=== PATIENT | male | born 1950 | race Caucasian/White ===

== ENCOUNTER 2020-03-20 09:37 | Outpatient (CLI) | payer MEDICARE, OTHER, SELFPAY ==
--- NOTE | ~2020-03-20 | US_ITS ---
EXAMINATION: US thyroid EXAM DATE: 03/20/2020 10:22 INDICATION: Altered nodules. TECHNIQUE: Multiple grayscale and Doppler images of the thyroid were obtained (by a technologist who performed the scan) and subsequently reviewed. Individual nodules and recommendations may be reporte d in accordance with TI-RADS system as designated by the 2017 ACR White Paper TI-RADS committee. Comp daniele is made to prior examination from 04/18/2019. FINDINGS: The right thyroid lobe measures 5.3 x 3.0 x 2.5 cm, the left measuring 5.8 x 2.7 x 2.8 cm. Sizable th yroid nodule in each thyroid lobe, category TR 4 lesions, with the right measuring 3.2 x 1.8 x 2.5 cm (stable), and the left measuring 4.1 x 2.6 x 2.5 cm (stable). IMPRESSION: Multinodular goiter, demonstrating one year stability. Nodules could be considered for ul trasound-guided biopsy. Reviewed, dictated and finalized at location A. IMPRESSION: Multinodular goiter, demonstrating one year stability. Nodules coul d be considered for ultrasound-guided biopsy.
== END 2020-03-20 09:38 | disposition home or self-care (01) ==
LOC: ANHIMG 09:52
PROVIDERS: PCP Internal Medicine; Visit Provider Otolaryngology
DX: E04.2 Nontoxic multinodular goiter (principal)
CPT/HCPCS: 76536

== ENCOUNTER 2020-03-27 10:08 | Outpatient (CLI) | payer MEDICARE, OTHER, SELFPAY ==
[2020-03-27 10:52] LABS: Basophils Absolute Auto 0.1 K/mm3 (0.0-0.1); Basophils Percent Auto 0.8 % (0.2-1.2); Eosinophils Absolute Auto 0.2 K/mm3 (0-0.3); Eosinophils Percent Auto 2.9 % (0-4.4); Hematocrit 39.6 % (42.0-52.0); Immature Granulocyte Absolute 0.03 K/mm3 (0.00-0.031); Immature Granulocyte Percent A 0.4 % (0-0.5); Lymphocytes Absolute Auto 1.68 K/mm3 (0.9-3.2); Lymphocytes Percent Auto 21.4 % (18.3-44.2); Mean Corpuscular HGB Conc 32.8 g/dl (32-36); Mean Corpuscular Hemoglobin 30.9 pg (26-34); Mean Corpuscular Volume 94.1 fl (80-100); Mean Platelet Volume 10.4 fl (7.4-10.4); Monocytes Absolute Auto 1.1 K/mm3 (0.1-0.6); Monocytes Percent Auto 13.6 % (2.6-8.5); Neutrophils Absolute Auto 4.8 K/mm3 (1.3-6.7); Neutrophils Percent Auto 60.9 % (45.5-73.1); Platelet Count Result 231 k/mm3 (150-375); Red Blood Count 4.21 M/mm3 (4.6-6.20); Red Cell Distribution Width 13.2 % (11.5-14.5); White Blood Count 7.8 K/mm3 (4.5-10.0)
[2020-03-27 11:11] LABS: Alanine Aminotransferase 20 U/L (4-50); Albumin Level 3.8 g/dL (3.5-5.1); Alkaline Phosphatase 89 U/L (38-126); Anion Gap 6 mmol/L (8-16); Aspartate Amino Transferase 20 U/L (17-59); Bilirubin,Total 0.7 mg/dL (0.2-1.3); Blood Urea Nitrogen 18 mg/dL (9-20); Calcium 8.8 mg/dL (8.4-10.2); Carbon Dioxide 28 mmol/L (22-30); Chloride 103 mmol/L (98-107); Cholesterol 172 mg/dL (0-200); Estimated Glomerular Filt Rate 54; Glucose 100 mg/dL (75-110); HDL Direct 27 mg/dL; Potassium 4.4 mmol/L (3.4-5.0); Sodium 137 mmol/L (137-145); Triglycerides 108 mg/dL (<150)
[2020-03-27 11:12] LABS: Hemoglobin A1C 5.5 % (<5.7)
[2020-03-27 11:15] LABS: Creatinine Urine 99.7 mg/dL
[2020-03-27 11:22] LABS: LDL Cholesterol Direct 100 mg/dL
[2020-03-27 11:24] LABS: MALB Creatinine Ratio < 6.0 mg/g (0-30); Microalbumin Urine Random < 6.0 mg/L (0-16.7)
[2020-03-27 11:41] LABS: Prostate Specific Antigen 2.4 ng/mL (< OR = 4.0)
== END 2020-03-27 10:09 | disposition home or self-care (01) ==
PROVIDERS: PCP Internal Medicine; Visit Provider Internal Medicine
DX: E04.2 Nontoxic multinodular goiter (principal); E78.5 Hyperlipidemia, unspecified; I10 Essential (primary) hypertension; I48.0 Paroxysmal atrial fibrillation; R73.01 Impaired fasting glucose; I48.91 Unspecified atrial fibrillation; Z12.5 Encounter for screening for malignant neoplasm of prostate
CPT/HCPCS: 36415; 80053; 80061; 82043; 83036; 84153; 84443; 85025; G0103

== ENCOUNTER 2020-09-28 08:53 | Outpatient (CLI) | payer MEDICARE, OTHER, SELFPAY ==
[2020-09-28 09:21] LABS: Basophils Absolute Auto 0.1 K/mm3 (0.0-0.1); Basophils Percent Auto 0.8 % (0.2-1.2); Eosinophils Absolute Auto 0.3 K/mm3 (0-0.3); Hematocrit 40.1 % (42.0-52.0); Immature Granulocyte Absolute 0.02 K/mm3 (0.00-0.031); Immature Granulocyte Percent A 0.3 % (0-0.5); Lymphocytes Absolute Auto 1.66 K/mm3 (0.9-3.2); Lymphocytes Percent Auto 25.5 % (18.3-44.2); Mean Corpuscular HGB Conc 32.4 g/dl (32-36); Mean Corpuscular Hemoglobin 30.2 pg (26-34); Mean Corpuscular Volume 93.3 fl (80-100); Mean Platelet Volume 9.9 fl (7.4-10.4); Monocytes Percent Auto 14.6 % (2.6-8.5); Neutrophils Absolute Auto 3.6 K/mm3 (1.3-6.7); Neutrophils Percent Auto 54.8 % (45.5-73.1); Platelet Count Result 246 k/mm3 (150-375); Red Cell Distribution Width 13.9 % (11.5-14.5); White Blood Count 6.5 K/mm3 (4.5-10.0)
[2020-09-28 09:36] LABS: Alanine Aminotransferase 22 U/L (4-50); Albumin Level 3.9 g/dL (3.5-5.1); Alkaline Phosphatase 89 U/L (38-126); Anion Gap 2 mmol/L (8-16); Aspartate Amino Transferase 18 U/L (17-59); Bilirubin,Total 0.4 mg/dL (0.2-1.3); Blood Urea Nitrogen 14 mg/dL (9-20); Calcium 8.9 mg/dL (8.4-10.2); Carbon Dioxide 30 mmol/L (22-30); Chloride 107 mmol/L (98-107); Estimated Glomerular Filt Rate 54; Glucose 96 mg/dL (75-110); Potassium 4.3 mmol/L (3.4-5.0); Sodium 139 mmol/L (137-145)
[2020-09-28 09:50] LABS: Hemoglobin A1C 5.5 % (<5.7)
[2020-09-28 09:53] LABS: Iron 80 ug/dL (49-181)
[2020-09-28 10:02] LABS: Percent Iron Saturation 27 % (20-50)
[2020-09-28 10:27] LABS: Creatinine Urine 166.9 mg/dL
[2020-09-28 10:31] LABS: MALB Creatinine Ratio 7.5 mg/g (0-30); Microalbumin Urine Random 12.6 mg/L (0-16.7)
[2020-09-28 10:48] LABS: Folic Acid > 20.0 ng/mL (2.76->20)
== END 2020-09-28 08:54 | disposition home or self-care (01) ==
PROVIDERS: PCP Internal Medicine; Referring Provider Nurse Practitioner Family; Visit Provider Internal Medicine
DX: D64.9 Anemia, unspecified (principal); E78.2 Mixed hyperlipidemia; I10 Essential (primary) hypertension; R73.01 Impaired fasting glucose; I48.91 Unspecified atrial fibrillation
CPT/HCPCS: 36415; 80053; 82043; 82607; 82728; 82746; 83036; 83540; 83550; 85025

== ENCOUNTER → 2021-01-05 01:13 | Outpatient (CLI) | payer MEDICARE, OTHER, SELFPAY ==
[2021-01-05 17:24] LABS: SARS-CoV-2 RNA PCR Negative
== END ==
PROVIDERS: PCP Internal Medicine; Visit Provider Internal Medicine Gastroenterology
DX: Z01.812 Encounter for preprocedural laboratory examination (principal); Z20.822 Contact with and (suspected) exposure to COVID-19
CPT/HCPCS: C9803; U0003; U0005

== ENCOUNTER 2021-01-08 00:49 | Day surgery (SDC) | payer MEDICARE, OTHER, SELFPAY ==
[2020-12-29 12:09] VITALS: BMI 27.7
[2021-01-08 09:20] VITALS: BP 131/77; PULSE 72; RESP 18; TEMP 36; O2SAT 98; BMI 27.1
[2021-01-08] MEDS: LACTATED RINGERS 1,000 ML 150 ML IV CONT (09:31)
--- NOTE | 2021-01-08 09:51 | PM.HPGS ---
History of Present Illness History of Present Illness Consent: Risks, benefits, and alternatives have been discussed and questions answered. Patient agrees to proceed with procedure. Chief complaint: neoplasm screening Narrative: Jacob Fine is a 70 year old male referred for colon cancer screening Review of Systems Review of Systems: All systems reviewed & are unremarkable except as noted in HPI and below PMFSH Family History Family History Mother Diabetes mellitus Family history of pancreatic disease Sibling Family history of schizophrenia Other Family history of malignant neoplasm Social History Social History Smoking packs per day: 2 Smoking cigarettes per day: 40.0 Years smoked: 5 Smoking pack-years: 10.00 Smoking status: Former smoker Second hand tobacco smoke exposure: No Smoking end date: 07/24/71 Alcohol intake: never Living arrangements: with family Spiritual care concerns: No Meds Home Medications and Allergies Home Medications Medication Instructions Recorded Confirmed Type apixaban 5 mg tablet 5 mg PO BID 09/27/19 12/29/20 History metoprolol tartrate 50 mg tablet 50 mg PO Q12H 09/27/19 12/29/20 History omega 2-nqt-aeq-fish oil 1,000 mg 1 cap PO DAILY 09/27/19 12/29/20 History (120 mg-180 mg) capsule aspirin 81 mg tablet,delayed 81 mg PO DAILY 12/09/19 12/29/20 History release cholecalciferol (vitamin D3) 50 100 mcg PO DAILY cap 12/09/19 12/29/20 History mcg (2,000 unit) capsule coenzyme Q10 100 mg capsule 100 mg PO DAILY cap 12/09/19 12/29/20 History Allergies Allergy/AdvReac Type Severity Reaction Status Date / Time No Known Allergies Allergy Verified 01/08/21 09:19 Vital Signs Vital Signs - 24 hr 01/08/21 09:20 Temperature 36.0 C L Pulse Rate 72 Respiratory Rate 18 Blood Pressure 131/77 Pulse Oximetry 98 Exam Resp: Auscultation: clear to auscultation bilaterally Cardio: Rate: regular rate Rhythm: regular rhythm GI: GI Palp: Yes Soft to palpation and No Tenderness to palpation present (GI) Assessment and Plan Assessment and plan (1) Encounter for screening colonoscopy: Code(s): Z12.11 - Encounter for screening for malignant neoplasm of colon Status: Acute Assessment and Plan: Colonoscopy with possible biopsy or polypectomy or cautery or injection of substances.
--- NOTE | 2021-01-08 10:07 | WPDANESEPPF ---
Anes - Initial Pre Proc Eval Procedure: Operation Date: 01/08/21 10:30 Proposed Procedures p Screening Colonoscopy - Jared King MD Date/Time: 01/08/21 10:07 Surgeon: Jared King MD Pre Op Diagnosis: neoplasm screening Patient Data Age: 70 Gender: M Height: 6 ft 2 in Weight: 96 kg Last Vital Signs Temp 96.8 F L 01/08/21 09:20 Pulse 72 01/08/21 09:20 Resp 18 01/08/21 09:20 BP 131/77 01/08/21 09:20 Pulse Ox 98 01/08/21 09:20 Allergies Allergy/AdvReac Type Severity Reaction Status Date / Time No Known Allergies Allergy Verified 01/08/21 09:19 Home Medications Medication Instructions Recorded Confirmed Type apixaban 5 mg tablet 5 mg PO BID 09/27/19 12/29/20 History metoprolol tartrate 50 mg tablet 50 mg PO Q12H 09/27/19 12/29/20 History omega 2-oun-lyt-fish oil 1,000 mg 1 cap PO DAILY 09/27/19 12/29/20 History (120 mg-180 mg) capsule aspirin 81 mg tablet,delayed 81 mg PO DAILY 12/09/19 12/29/20 History release cholecalciferol (vitamin D3) 50 100 mcg PO DAILY cap 12/09/19 12/29/20 History mcg (2,000 unit) capsule coenzyme Q10 100 mg capsule 100 mg PO DAILY cap 12/09/19 12/29/20 History Patient hx anesthesia problems: none Family hx anesthesia problems: none PMFSH Past Medical History Medical History (Updated 01/08/21 @ 09:56 by Chad Correa MD) AAA (abdominal aortic aneurysm) Complex sleep apnea syndrome Essential hypertension ELVIE (obstructive sleep apnea) Unspecified atrial fibrillation Surgical History Surgical History (Updated 01/08/21 @ 09:56 by Chad Correa MD) History of coronary artery bypass graft Family History Family History Mother Diabetes mellitus Family history of pancreatic disease Sibling Family history of schizophrenia Other Family history of malignant neoplasm Social History Social History Smoking packs per day: 2 Smoking cigarettes per day: 40.0 Years smoked: 5 Smoking pack-years: 10.00 Smoking status: Former smoker Second hand tobacco smoke exposure: No Smoking end date: 07/24/71 Alcohol intake: never Living arrangements: with family Spiritual care concerns: No Anes - Eval Final PreProcedure Day of Procedure 01/08/21 10:07 Patient weight: normal Heart: regular rate and rhythm Lungs: clear to auscultation Airway: Mallampati scale class II Neurological: alert and oriented Last oral intake: >/= 8 hours ASA classification: III Emergent: no Anesthetic plan: proceed Anesthesia type and monitoring: general GIVS and standard monitoring Informed Consent: The patient's anesthetic plan and its attendant risks and benefits were discussed with the patient/family/POA. Questions were solicited and answers provided to the satisfaction of the patient/family/POA.
[2021-01-08 10:36] VITALS: BP 102/57; PULSE 69; RESP 19; O2SAT 98
[2021-01-08 10:46] VITALS: BP 95/56; PULSE 67; RESP 19; O2SAT 98
[2021-01-08 11:06] VITALS: BP 107/60; PULSE 67; RESP 19; O2SAT 98
== END 2021-01-08 11:10 | disposition home or self-care (01) ==
PROVIDERS: PCP Internal Medicine; Visit Provider Internal Medicine Gastroenterology
PROC: 0DJD8ZZ Inspection of Lower Intestinal Tract, Via Natural or Artificial Opening Endoscopic (ICD-10-PCS; CPT 45378; principal; 2021-01-08 10:30)
DX: Z12.11 Encounter for screening for malignant neoplasm of colon (principal); K57.30 Diverticulosis of large intestine without perforation or abscess without bleeding; I10 Essential (primary) hypertension; I48.91 Unspecified atrial fibrillation; I71.4 Abdominal aortic aneurysm, without rupture; G47.33 Obstructive sleep apnea (adult) (pediatric); Z79.01 Long term (current) use of anticoagulants; Z79.82 Long term (current) use of aspirin; Z95.1 Presence of aortocoronary bypass graft; Z87.891 Personal history of nicotine dependence
CPT/HCPCS: G0121; J2704; J7120

== ENCOUNTER 2021-05-31 08:12 | Outpatient (CLI) | payer MEDICARE, OTHER, SELFPAY ==
--- NOTE | ~2021-05-31 | US_ITS ---
EXAMINATION: US thyroid DATE: 05/31/2021 08:43 INDICATION: Nontoxic multinodular goiter. TECHNIQUE: Multiple ultrasound images of the thyroid were obtained. COMPARISON: Thyroid ultrasound 03/20/2020, 04/18/2019 FINDINGS: The right thyroid lobe measures 6.4 x 3.0 x 3.0 cm. The left thyroid lobe measures 6.0 x 2.4 x 2.9 c m. The thyroid demonstrates heterogeneous echogenicity and normal vascularity. In the right thyroid l obe, there is a 3.2 cm solid, hypoechoic, nrhsz-jbeq-ywio nodule with ill-defined margin without echo genic foci (TI-RADS TR4). In the left thyroid lobe, there is a 3.0 cm solid, hypoechoic, arnqx-qdqc-d all nodule with ill-defined margin without echogenic foci (TR4). IMPRESSION: 1. Multinodular goiter, stable from 04/18/2019 given the differences in measurement technique. Conside r ultrasound-guided fine-needle aspiration of 2 nodules. Reviewed, dictated and finalized at location A. 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 Multinodular goiter, stable from 04/18/2019 given the differences in measurem ent technique. Consider ultrasound-guided fine-needle aspiration of 2 nodules.
== END 2021-05-31 08:13 | disposition home or self-care (01) ==
LOC: ANHIMG 08:15
PROVIDERS: PCP Internal Medicine; Visit Provider Otolaryngology
DX: E04.2 Nontoxic multinodular goiter (principal)
CPT/HCPCS: 76536

== ENCOUNTER 2021-10-21 08:19 | Outpatient (CLI) | payer MEDICARE, OTHER, SELFPAY ==
[2021-10-21 08:57] LABS: Basophils Percent Auto 0.7 % (0.2-1.2); Eosinophils Absolute Auto 0.2 K/mm3 (0-0.3); Hematocrit 41.2 % (42.0-52.0); Hemoglobin 13.5 g/dL (14.0-18.0); Immature Granulocyte Absolute 0.01 K/mm3 (0.00-0.031); Immature Granulocyte Percent A 0.2 % (0-0.5); Lymphocytes Absolute Auto 1.65 K/mm3 (0.9-3.2); Lymphocytes Percent Auto 27.6 % (18.3-44.2); Mean Corpuscular HGB Conc 32.8 g/dl (32-36); Mean Corpuscular Volume 94.7 fl (80-100); Mean Platelet Volume 9.8 fl (7.4-10.4); Monocytes Absolute Auto 0.7 K/mm3 (0.1-0.6); Neutrophils Absolute Auto 3.4 K/mm3 (1.3-6.7); Neutrophils Percent Auto 57.5 % (45.5-73.1); Platelet Count Result 247 k/mm3 (150-375); Red Blood Count 4.35 M/mm3 (4.6-6.20); Red Cell Distribution Width 13.4 % (11.5-14.5)
[2021-10-21 09:07] LABS: Alanine Aminotransferase 21 U/L (4-50); Alkaline Phosphatase 98 U/L (38-126); Anion Gap 6 mmol/L (8-16); Aspartate Amino Transferase 18 U/L (17-59); Bilirubin,Total 0.4 mg/dL (0.2-1.3); Blood Urea Nitrogen 15 mg/dL (9-20); Calcium 8.8 mg/dL (8.4-10.2); Carbon Dioxide 26 mmol/L (22-30); Chloride 107 mmol/L (98-107); Cholesterol 156 mg/dL (0-200); Estimated Glomerular Filt Rate > 60; Glucose 96 mg/dL (65-110); HDL Direct 27 mg/dL; Potassium 4.4 mmol/L (3.4-5.0); Sodium 139 mmol/L (137-145); Triglycerides 85 mg/dL (<150)
[2021-10-21 09:17] LABS: LDL Cholesterol Direct 90 mg/dL
[2021-10-21 10:10] LABS: Vitamin D 25 Hydroxy 88.4 ng/mL
== END 2021-10-21 08:20 | disposition home or self-care (01) ==
LOC: ANHLAB 08:23
PROVIDERS: PCP Internal Medicine; Visit Provider Internal Medicine
DX: E04.2 Nontoxic multinodular goiter (principal); E55.9 Vitamin D deficiency, unspecified; E78.2 Mixed hyperlipidemia; G47.31 Primary central sleep apnea; I48.0 Paroxysmal atrial fibrillation; K21.9 Gastro-esophageal reflux disease without esophagitis; Z12.5 Encounter for screening for malignant neoplasm of prostate
CPT/HCPCS: 36415; 80053; 80061; 82306; 84153; 84443; 85025; G0103

== ENCOUNTER 2022-07-03 15:30 | Emergency (ER) | payer MEDICARE, OTHER, SELFPAY ==
--- NOTE | ~2022-07-03 | CT_ITS ---
EXAMINATION: CTA chest PE protocol DATE: 07/03/2022 17:31 INDICATION: hx PE, pleuritic CP x 1 day TECHNIQUE: Computed tomography angiography (CTA) of the chest was performed with 100 mL Omnipaque-350 intravenous contrast timed to evaluate the pulmonary arteries. Coronal maximum intensity projection 3D-reconstructions were created by the technologist. The dose-length product (DLP) was 564.61 mGy-cm. Automated exposure control and iterative reconstruction technique were employed. COMPARISON: X-ray chest, same date, CTPA 10/18/2009. FINDINGS: Lung parenchyma and airways: Bilateral mid and lower lung posterior scarring. Scattered air cysts. Pleura: Unremarkable. Thoracic inlet, axillae and chest wall: Multiple thyroid nodules measuring up to 2.4 cm. Thoracic aorta: Mild arch calcification. Mediastinum: Scattered subcentimeter mediastinal nodes. Heart and pericardium: Normal. Coronary artery calcifications: Mild. Upper abdomen: Cholelithiasis. Bones: No acute osseous finding. Pulmonary arteries: Study quality: Mildly limited by motion artifact in the lower lobes, overall adeq uate. No pulmonary emboli detected. IMPRESSION: No CT evidence of acute pulmonary embolus. Multiple thyroid nodules, recommend nonemergent, outpatien t thyroid ultrasound for further characterization. Reviewed, dictated and finalized at location K. 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 Multiple thyroid nodules, recommend nonemergent, outpatient thyroid ultrasound for further characterization.
--- NOTE | ~2022-07-03 | XR_ITS ---
EXAMINATION: XR chest 2V Exam Date/Time: 07/03/2022 15:40 [facility] FORMER HISTORY: Chest Pain, hx triple bipass, hx PE's Comparison: 10/26/2015, 09/16/2013. RESULT: Lines, tubes, and devices: Intact sternotomy wires. Mediastinal vascular clips. Lungs and pleura: Lower lung scarring, otherwise clear. Cardiomediastinal silhouette: Stable. Other: No acute osseous or upper abdominal finding. IMPRESSION: No acute cardiopulmonary process. Reviewed, dictated and finalized at location K. E FORMER
--- NOTE | 2022-07-03 15:31 | ECG_ITS ---
Measurements Intervals Art Rate: 76 P: 75 ND: 187 QRS: 57 QRSD: 117 T: 49 QT: 358 QTc: 404 Interpretive Statements SINUS RHYTHM INCOMPLETE RIGHT BUNDLE BRANCH BLOCK [90+ ms QRS DURATION, TERMINAL R IN V1/V2, 40+ ms S IN I/aVL/V4/V5/V6] NO PREVIOUS ECG AVAILABLE FOR COMPARISON Electronically Signed On 07-04-2022 6:19:15 [employer] [employer] by Anthony Archibald M.D.
[2022-07-03 15:49] LABS: Basophils Absolute Auto 0.1 K/mm3 (0.0-0.1); Basophils Percent Auto 0.7 % (0.2-1.2); Eosinophils Absolute Auto 0.2 K/mm3 (0-0.3); Eosinophils Percent Auto 2.2 % (0-4.4); Hematocrit 41.6 % (42.0-52.0); Hemoglobin 13.6 g/dL (14.0-18.0); Immature Granulocyte Absolute 0.02 K/mm3 (0.00-0.031); Immature Granulocyte Percent A 0.2 % (0-0.5); Lymphocytes Absolute Auto 1.64 K/mm3 (0.9-3.2); Lymphocytes Percent Auto 17.5 % (18.3-44.2); Mean Corpuscular HGB Conc 32.7 g/dl (32-36); Mean Corpuscular Hemoglobin 30.8 pg (26-34); Mean Corpuscular Volume 94.3 fl (80-100); Mean Platelet Volume 9.6 fl (7.4-10.4); Monocytes Absolute Auto 1.1 K/mm3 (0.1-0.6); Monocytes Percent Auto 11.2 % (2.6-8.5); Neutrophils Absolute Auto 6.4 K/mm3 (1.3-6.7); Neutrophils Percent Auto 68.2 % (45.5-73.1); Platelet Count Result 320 k/mm3 (150-375); Red Blood Count 4.41 M/mm3 (4.6-6.20); White Blood Count 9.4 K/mm3 (4.5-10.0)
[2022-07-03 15:55] VITALS: BP 137/80; PULSE 73; RESP 15; TEMP 36.7; O2SAT 100
[2022-07-03 15:58] LABS: Alanine Aminotransferase 25 U/L (6-50); Albumin Level 4.2 g/dL (3.5-5.1); Alkaline Phosphatase 87 U/L (38-126); Anion Gap 6 mmol/L (8-16); Aspartate Amino Transferase 23 U/L (17-59); Bilirubin,Total 0.5 mg/dL (0.2-1.3); Blood Urea Nitrogen 15 mg/dL (9-20); Calcium 8.6 mg/dL (8.4-10.2); Carbon Dioxide 28 mmol/L (22-30); Chloride 104 mmol/L (98-107); Estimated Glomerular Filt Rate > 60; Glucose 87 mg/dL (65-110); Lipase 83 U/L (23-300); Potassium 3.9 mmol/L (3.4-5.0); Sodium 138 mmol/L (137-145)
[2022-07-03 16:00] VITALS: O2SAT 100
[2022-07-03 16:10] LABS: Troponin I < 0.012 ng/mL (0.000-0.034)
[2022-07-03 16:13] LABS: Prothrombin Time 12.7 Seconds (11.1-14.7)
[2022-07-03 16:57] VITALS: PULSE 85; RESP 12; O2SAT 99
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
[2022-07-03 18:30] VITALS: BP 135/83; PULSE 77; RESP 16; O2SAT 97
== END 2022-07-03 18:46 | disposition home or self-care (01) ==
PROVIDERS: Preventive Medicine Aerospace Medicine; Emergency Provider Physician Assistant; PCP Internal Medicine
DX: I48.91 Unspecified atrial fibrillation (principal); I25.10 Atherosclerotic heart disease of native coronary artery without angina pectoris; I10 Essential (primary) hypertension; I25.2 Old myocardial infarction; G47.31 Primary central sleep apnea; Z95.1 Presence of aortocoronary bypass graft; Z86.711 Personal history of pulmonary embolism; Z79.01 Long term (current) use of anticoagulants; Z87.891 Personal history of nicotine dependence; I45.10 Unspecified right bundle-branch block; E04.2 Nontoxic multinodular goiter
CPT/HCPCS: 36415; 71046; 71275; 80053; 83690; 84484; 85025; 85610; 85730; 93005; 99284; Q9967

== ENCOUNTER 2022-10-14 07:57 | Outpatient (CLI) | payer MEDICARE, OTHER, SELFPAY ==
--- NOTE | ~2022-10-14 | US_ITS ---
Thyroid ultrasound. Clinical History: Multinodular goiter COMPARISON: 05/31/2021 and 03/20/2020 Findings: Real-time sonography of the thyroid gland was performed. The right lobe measures 5.7 x 2.1 x 3.1 cm. The left lobe measures 6.1 x 3.0 x 2.7 cm. The isthmus is 4 mm in AP diameter. At the right mid pole, there is a 3.4 x 1.9 x 2.9 cm heterogeneous solid circumscribed nodule, with s mall internal cystic components. At the left lower pole, there is a 4.0 x 2.7 x 2.5 cm heterogeneous primarily solid nodule, with smal l internal cystic components and heterogeneous appearance overall, though with circumscribed borders. Several much smaller left thyroid lobe nodules are also present. Impression: Bilateral thyroid nodules, as detailed above. Given differences in imaging technique, there has been no significant interval change. Findings are consistent with multinodular goiter. Reviewed, dictated and finalized at location . Impression: Bilateral thyroid nodules, as detailed above. Given differences in ultrasound technologist nique, there has been no significant interval change. Findings are consistent w ith multinodular goiter.
[2022-10-14 09:53] LABS: Alanine Aminotransferase 24 U/L (6-50); Albumin Level 3.9 g/dL (3.5-5.1); Alkaline Phosphatase 106 U/L (38-126); Anion Gap 4 mmol/L (8-16); Aspartate Amino Transferase 17 U/L (17-59); Bilirubin,Total 0.6 mg/dL (0.2-1.3); Blood Urea Nitrogen 19 mg/dL (9-20); Calcium 8.5 mg/dL (8.4-10.2); Carbon Dioxide 28 mmol/L (22-30); Chloride 105 mmol/L (98-107); Cholesterol 158 mg/dL (0-200); Estimated Glomerular Filt Rate 59; Glucose 104 mg/dL (65-110); HDL Direct 26 mg/dL; Potassium 4.2 mmol/L (3.4-5.0); Sodium 137 mmol/L (137-145); Triglycerides 110 mg/dL (<150)
[2022-10-14 10:04] LABS: LDL Cholesterol Direct 91 mg/dL
[2022-10-14 10:21] LABS: Prostate Specific Antigen 3.5 ng/mL (< OR = 4.0)
[2022-10-19 15:23] LABS: Testosterone Free 67.4 pg/mL (30.0-135.0); Testosterone Total 406 ng/dL (250-1100)
== END 2022-10-14 07:58 | disposition home or self-care (01) ==
LOC: ANHIMG 07:59
PROVIDERS: Nurse Practitioner Family; PCP Internal Medicine; Visit Provider Otolaryngology
DX: E04.2 Nontoxic multinodular goiter (principal); N40.0 Benign prostatic hyperplasia without lower urinary tract symptoms; E78.2 Mixed hyperlipidemia; I10 Essential (primary) hypertension; Z12.5 Encounter for screening for malignant neoplasm of prostate
CPT/HCPCS: 36415; 76536; 80053; 80061; 84153; 84402; 84403; 84443; G0103

== ENCOUNTER 2023-05-10 09:22 | Outpatient (CLI) | payer MEDICARE, OTHER, SELFPAY ==
[2023-05-10 10:27] LABS: Basophils Absolute Auto 0.1 K/mm3 (0.0-0.1); Basophils Percent Auto 0.8 % (0.2-1.2); Eosinophils Absolute Auto 0.3 K/mm3 (0-0.3); Eosinophils Percent Auto 4.1 % (0-4.4); Hematocrit 40.8 % (42.0-52.0); Hemoglobin 13.1 g/dL (14.0-18.0); Immature Granulocyte Absolute 0.01 K/mm3 (0.00-0.031); Immature Granulocyte Percent A 0.1 % (0-0.5); Lymphocytes Absolute Auto 1.85 K/mm3 (0.9-3.2); Lymphocytes Percent Auto 25.1 % (18.3-44.2); Mean Corpuscular HGB Conc 32.1 g/dl (32-36); Mean Corpuscular Hemoglobin 30.7 pg (26-34); Mean Corpuscular Volume 95.6 fl (80-100); Mean Platelet Volume 10.2 fl (7.4-10.4); Monocytes Absolute Auto 1.1 K/mm3 (0.1-0.6); Monocytes Percent Auto 14.5 % (2.6-8.5); Neutrophils Absolute Auto 4.1 K/mm3 (1.3-6.7); Neutrophils Percent Auto 55.4 % (45.5-73.1); Platelet Count Result 261 k/mm3 (150-375); Red Blood Count 4.27 M/mm3 (4.6-6.20); Red Cell Distribution Width 13.6 % (11.5-14.5); White Blood Count 7.4 K/mm3 (4.5-10.0)
[2023-05-10 10:37] LABS: Alanine Aminotransferase 21 U/L (6-50); Alkaline Phosphatase 96 U/L (38-126); Anion Gap 4 mmol/L (8-16); Aspartate Amino Transferase 16 U/L (17-59); Bilirubin,Total 0.6 mg/dL (0.2-1.3); Blood Urea Nitrogen 17 mg/dL (9-20); Calcium 8.7 mg/dL (8.4-10.2); Carbon Dioxide 27 mmol/L (22-30); Chloride 106 mmol/L (98-107); Estimated Glomerular Filt Rate 59; Glucose 97 mg/dL (65-110); Potassium 4.2 mmol/L (3.4-5.0); Sodium 137 mmol/L (137-145)
== END 2023-05-10 09:23 | disposition home or self-care (01) ==
LOC: ANHLAB 09:23
PROVIDERS: PCP Nurse Practitioner Family; Visit Provider Nurse Practitioner Family
DX: I10 Essential (primary) hypertension (principal)
CPT/HCPCS: 36415; 80053; 85025

== ENCOUNTER 2023-12-13 10:45 | Outpatient (CLI) | payer MEDICARE, OTHER, SELFPAY ==
[2023-12-13 11:57] LABS: Basophils Absolute Auto 0.1 K/mm3 (0.0-0.1); Eosinophils Absolute Auto 0.2 K/mm3 (0-0.3); Eosinophils Percent Auto 3.3 % (0-4.4); Hematocrit 43.2 % (42.0-52.0); Hemoglobin 13.9 g/dL (14.0-18.0); Immature Granulocyte Absolute 0.02 K/mm3 (0.00-0.031); Immature Granulocyte Percent A 0.3 % (0-0.5); Lymphocytes Absolute Auto 1.41 K/mm3 (0.9-3.2); Lymphocytes Percent Auto 21.1 % (18.3-44.2); Mean Corpuscular HGB Conc 32.2 g/dl (32-36); Mean Corpuscular Hemoglobin 30.8 pg (26-34); Mean Corpuscular Volume 95.6 fl (80-100); Mean Platelet Volume 10.3 fl (7.4-10.4); Monocytes Absolute Auto 0.9 K/mm3 (0.1-0.6); Monocytes Percent Auto 13.2 % (2.6-8.5); Neutrophils Absolute Auto 4.1 K/mm3 (1.3-6.7); Neutrophils Percent Auto 61.1 % (45.5-73.1); Platelet Count Result 267 k/mm3 (150-375); Red Blood Count 4.52 M/mm3 (4.6-6.20); Red Cell Distribution Width 13.4 % (11.5-14.5); White Blood Count 6.7 K/mm3 (4.5-10.0)
[2023-12-13 12:12] LABS: Alanine Aminotransferase 22 U/L (6-50); Albumin Level 4.4 g/dL (3.5-5.1); Alkaline Phosphatase 95 U/L (38-126); Anion Gap 8 mmol/L (4-12); Aspartate Amino Transferase 17 U/L (17-59); Bilirubin,Total 0.6 mg/dL (0.2-1.3); Blood Urea Nitrogen 18 mg/dL (9-20); Calcium 8.9 mg/dL (8.4-10.2); Carbon Dioxide 26 mmol/L (22-30); Chloride 104 mmol/L (98-107); Cholesterol 156 mg/dL (0-200); Estimated Glomerular Filt Rate 59; Glucose 85 mg/dL (65-110); HDL Direct 33 mg/dL; Potassium 4.2 mmol/L (3.4-5.0); Sodium 138 mmol/L (137-145); Triglycerides 159 mg/dL (<150)
[2023-12-13 12:22] LABS: LDL Cholesterol Direct 92 mg/dL
[2023-12-13 12:36] LABS: Prostate Specific Antigen 3.6 ng/mL (< OR = 4.0)
[2023-12-13 12:45] LABS: Iron 84 ug/dL (49-181); Percent Iron Saturation 28 % (20-50); Vitamin D 25 Hydroxy 72.5 ng/mL
[2023-12-13 13:11] LABS: Folic Acid 10.6 ng/mL (2.76->20)
== END 2023-12-13 10:46 | disposition home or self-care (01) ==
PROVIDERS: PCP Family Medicine; Referring Provider Student in an Organized Health Care Education/Training Program; Visit Provider Nurse Practitioner Family
DX: D64.9 Anemia, unspecified (principal); E55.9 Vitamin D deficiency, unspecified; E78.5 Hyperlipidemia, unspecified; I10 Essential (primary) hypertension; I48.91 Unspecified atrial fibrillation; N40.0 Benign prostatic hyperplasia without lower urinary tract symptoms; R42 Dizziness and giddiness; Z12.5 Encounter for screening for malignant neoplasm of prostate; E78.2 Mixed hyperlipidemia
CPT/HCPCS: 36415; 80053; 80061; 82306; 82607; 82728; 82746; 83540; 83550; 84153; 85025; G0103

== ENCOUNTER 2023-12-28 06:58 | Outpatient (CLI) | payer MEDICARE, OTHER, SELFPAY ==
--- NOTE | ~2023-12-28 | MR_ITS ---
MRI of the brain Clinical History: Convulsions Technique: Axial and sagittal T1-weighted images were acquired. These were followed by axial T2-weigh kassi, diffusion weighted, gradient, and FLAIR images. COMPARISON: 06/08/2018 Findings: There is no acute infarct, intracranial hemorrhage or mass lesion. There are moderate chron ic microvascular ischemic changes in the periventricular white matter bilaterally. Ventricles and subarachnoid spaces are unremarkable. Orbits are unremarkable. Paranasal sinuses and m astoid air cells are clear. Major intracranial flow voids are intact. Sagittal midline structures are intact. IMPRESSION: No acute infarct, intracranial hemorrhage, or mass lesion. Moderate chronic microvascular ischemic changes. Reviewed, dictated and finalized at location M.
--- NOTE | ~2023-12-28 | CT_ITS ---
CT ANGIOGRAM NECK AND HEAD History: TIA. Technique: Axial noncontrast imaging of the brain was performed. Serial spiral axial images through t he head and neck were then obtained during arterial phase IV injection of 100 cc of Omnipaque 350. 3- D postprocessing and MIP images were then reconstructed on the remote workstation. Dose reduction wale hnique was used on this scan by utilizing automated exposure control and iterative reconstruction wale hnique. The dose-length product (DLP) was 1766.21 mGy-cm. CTA neck findings: Left vertebral artery is hypoplastic, patent. Right vertebral artery is widely pa tent. Bilateral common carotid, internal carotid, and external carotid arteries are patent. There are small calcified plaques of the bilateral proximal internal carotid arteries, without significant jw nosis. No large vessel occlusion. No aneurysm. The proximal right internal carotid artery demonstrate s 0% stenosis relative to the normal distal artery lumen diameter. The proximal left internal carotid artery demonstrates 0% stenosis relative to the normal distal artery lumen diameter. CTA head findings: Distal vertebral arteries, basilar artery, and posterior cerebral arteries are pat ent. Distal internal carotid arteries, middle cerebral arteries, and anterior cerebral arteries are p atent. There are areas of mild to moderate stenosis in the cavernous portions of the distal internal carotid arteries related to atherosclerotic calcifications. No other stenosis or large vessel occlusi on seen. No aneurysm seen. Axial noncontrast imaging of the brain is unremarkable. No acute infarct, intracranial hemorrhage or mass lesion seen. Contreras-white differentiation preserved. No mass effect or midline shift. Ventricles a nd subarachnoid spaces are unremarkable. Paranasal sinuses and mastoid air cells are clear. Calvarium intact. Impression: There are areas of mild to moderate stenosis in the cavernous portions of the distal internal carotid arteries related to atherosclerotic calcifications. Hypoplastic left vertebral artery. Reviewed, dictated and finalized at location M. Impression: There are areas of mild to moderate stenosis in the cavernous portions of the d istal internal carotid arteries related to atherosclerotic calcifications. Hypoplastic left vertebral artery.
--- NOTE | 2023-12-29 13:57 | P.NEURO_ITS ---
Neurology EEG Report General Information Date of Study: 12/28/23 TEST EEG CONDITION OF RECORDING Fair EEG NUMBER [id number] CLINICAL HISTORY spells of dizziness and foggy spells it may last up to 8 hours and happen about every 28-30 days EEG DESCRIPTION During wakefulness the background activity consists of posterior dominant alpha rhythm at 8-9 hertz with an amplitude of 25-50 microvolts which appears well- formed and reactive to eye opening. Anteriorly low amplitude mixed frequency activity was seen. Hyperventilation not performed. During drowsiness attenuation of background activity was seen. Patient did not progress to stage 2 sleep. 40 cm was performed during which no significant abnormal background changes were seen. No episode all driving response was noted. IMPRESSION This is a normal EEG obtained during awake and drowsy states.
== END 2023-12-28 06:59 | disposition home or self-care (01) ==
PROVIDERS: PCP Nurse Practitioner Family; Visit Provider Student in an Organized Health Care Education/Training Program
DX: R56.9 Unspecified convulsions (principal); G45.9 Transient cerebral ischemic attack, unspecified
CPT/HCPCS: 70496; 70498; 70551; 95816; Q9967

== ENCOUNTER 2024-10-22 10:59 | Outpatient (CLI) | payer MEDICARE, OTHER, SELFPAY ==
[2024-10-22 11:31] LABS: Basophils Absolute Auto 0.1 K/mm3 (0.0-0.1); Basophils Percent Auto 0.8 % (0.2-1.2); Eosinophils Absolute Auto 0.3 K/mm3 (0-0.3); Hematocrit 39.4 % (42.0-52.0); Hemoglobin 12.9 g/dL (14.0-18.0); Immature Granulocyte Absolute 0.02 K/mm3 (0.00-0.031); Immature Granulocyte Percent A 0.3 % (0-0.5); Lymphocytes Absolute Auto 1.73 K/mm3 (0.9-3.2); Mean Corpuscular HGB Conc 32.7 g/dl (32-36); Mean Corpuscular Hemoglobin 30.7 pg (26-34); Mean Corpuscular Volume 93.8 fl (80-100); Mean Platelet Volume 9.9 fl (7.4-10.4); Monocytes Percent Auto 14.3 % (2.6-8.5); Neutrophils Absolute Auto 4.1 K/mm3 (1.3-6.7); Neutrophils Percent Auto 56.6 % (45.5-73.1); Platelet Count Result 267 k/mm3 (150-375); Red Cell Distribution Width 13.5 % (11.5-14.5); White Blood Count 7.2 K/mm3 (4.5-10.0)
[2024-10-22 11:49] LABS: Alanine Aminotransferase 19 U/L (6-50); Albumin Level 3.9 g/dL (3.5-5.1); Alkaline Phosphatase 87 U/L (38-126); Anion Gap 6 mmol/L (4-12); Aspartate Amino Transferase 15 U/L (17-59); Bilirubin,Total 0.5 mg/dL (0.2-1.3); Blood Urea Nitrogen 15 mg/dL (9-20); Calcium 8.9 mg/dL (8.4-10.2); Carbon Dioxide 28 mmol/L (22-30); Chloride 104 mmol/L (98-107); Cholesterol 192 mg/dL (0-200); Estimated Glomerular Filt Rate 56; Glucose 87 mg/dL (65-110); HDL Direct 30 mg/dL; Potassium 4.3 mmol/L (3.4-5.0); Sodium 138 mmol/L (137-145); Triglycerides 150 mg/dL (<150)
[2024-10-22 11:57] LABS: Hemoglobin A1C 5.8 % (<5.7)
[2024-10-22 12:08] LABS: LDL Cholesterol Direct 110 mg/dL
[2024-10-22 12:16] LABS: Free T4 Free Thyroxine 1.16 ng/dL (0.78-2.19)
--- OUTSIDE RECORDS SUMMARY | 2024-10-22 12:18 | XMS_ITS | Referral Summary ---
Author Organization [facility] Building [address] Address [address] [address] Care Team Providers Care Machining Technician Name Role Phone Merlin Vitale MD Primary Care Provider [phone] Merlin Vitale MD Unavailable Encounters Date Type Department Care Team Description 08/12/2024 Telephone [facility] Cardiology [address] [place] [address] Anthony Archibald MD Med Refill from Last 3 Months Allergies No known active allergies Medications multivitamin tablet tablet take 1 tablet by oral route every day with food 0 0 10/24/2013 Active aspirin (ASPIRIN LOW DOSE) 81 mg tablet take 1 Tablet (81MG) by oral route every day 0 12/03/2012 Active omega-3 fatty acids-fish oil 340-1,000 mg capsule take 1 by Oral route every day 0 0 09/16/2013 Active niacin (NIASPAN) 500 mg tablet take 4 tablet by oral route every day 0 04/25/2013 Active coenzyme Q10 100 mg capsule Take 1 capsule (100 mg total) by mouth daily Active sildenafil (VIAGRA) 50 mg tablet 04/02/2019 Active simvastatin (ZOCOR) 20 mg tablet TAKE 1 TABLET NIGHTLY 90 tablet 3 09/27/2019 Active vit D3-vit V-teexvtdyp-osk s [phone] pwsq-bcu-fa-mg tablet Take by mouth Active ascorbic acid, vitamin C, 125 mg tablet,chewable Take by mouth Active lisinopriL (PRINIVIL,ZESTR IL) 5 mg tabletIndicatio ns:Coronary artery disease involving knik coronary artery of knik heart without angina pectoris TAKE 1 TABLET DAILY 90 tablet 3 01/01/2024 Active metoprolol XL (TOPROL-XL) 50 mg extended release tablet TAKE 1 TABLET DAILY 90 tablet 3 05/31/2024 Active apixaban (Eliquis) 5 mg tablet Take 1 tablet (5 mg total) by mouth 2 (two) times a day 60 tablet 08/13/2024 5 Active Active Problems Problem Noted Date Diagnosed Date Primary hypertension 01/03/2022 Assessment & Plan (01/13/2023 2:37 PM CDT): Impression: Chronic stable hypertension. Plan: Continue lisinopril and metoprolol. Assessment & Plan (01/03/2022 10:34 AM CDT): Followed by his PCP and chronic stable. I recommend he continue his lisinopril and Lopressor. Mixed hyperlipidemia 12/23/2019 Assessment & Plan (01/13/2023 2:37 PM CDT): Impression: Chronic stable hyperlipidemia. Plan: Continue Zocor 20 mg. Assessment & Plan (12/23/2019 9:41 AM CDT): Patient is maintained on a statin at this time. Abdominal aortic aneurysm (AAA) without rupture 04/22/2019 Assessment & Plan (01/18/2024 4:14 PM CDT): Being followed for a known suprarenal aortic aneurysms currently measuring 3.2 by cm. This is stable from previous duplex. Patient denies any abnormal abdominal flank or back pain. Plan: Follow-up in 1 year for routine surveillance with Assessment & Plan (01/13/2023 2:36 PM CDT): Impression: Patient has a proximal abdominal aortic aneurysms measuring approximately 3.4 cm which is stable from his last duplex scan. He remains asymptomatic. Plan: Continue ongoing risk factor modifications. -patient to follow-up in 1 year for re-evaluation with repeat abdominal aortic duplex Assessment & Plan (01/03/2022 10:32 AM CDT): Patient's aneurysm has not changed in size. Will have him follow up in 1 year with a repeat abdominal aortic duplex. Assessment & Plan (12/28/2020 9:23 AM CDT): Impression: Patient's states he is doing well since his last visit. Abdominal duplex is done 12/28/2020 reveals an infrarenal aorta measuring 2.0 cm. Plan: Follow-up in 1 year for re-evaluation with abdominal aorta imaging. Assessment & Plan (12/23/2019 9:40 AM CDT): Patient has infrarenal AAA that is measuring on ultrasound today at 2.6. At the outside hospital it measured 3.4, 6 months ago. At this time this is still a small aneurysm and will plan to see him in a year for repeat aortic duplex. If it increases in size significantly by that time then we will order CT scan. Otherwise will continue to monitor with ultrasounds. Assessment & Plan (04/22/2019 9:57 AM CDT): Patient has a 3.4 cm aneurysm. At this time it is not yet at the size that we need to fix. He will follow up in 6 months with another abdominal ultrasound to continue to monitor the growth. It was discussed with the patient about how it might need to be fixed in the future he had many questions which were all answered. Coronary artery disease invo lving knik coronary artery of knik heart without angina pectoris 05/25/2017 Hx of CABG 05/25/2017 Assessment & Plan (12/23/2019 9:41 AM CDT): Patient has a straight CABG but is not complaining of any chest pain or issues at this time. He is active with walking and riding his bike and denies any chest discomfort when doing these activities. Anticoagulation management encounter 01/04/2017 Assessment & Plan (04/22/2019 9:58 AM CDT): Currently on Eliquis for his AFib. He also takes an aspirin a day. Assessment & Plan (01/04/2017 11:45 AM CDT): He remains on Eliquis, as he has a history of pulmonary venous thromboembolic disease. He denies any problems with bleeding or bruising. He can follow up in 1 year for an office visit and 12 lead EKG. Paroxysmal atrial fibrillation 07/18/2014 Overview (10/28/2016): PAF Assessment & Plan (12/23/2019 9:41 AM CDT): Patient has paroxysmal AFib and is on Eliquis. Assessment & Plan (01/04/2017 11:45 AM CDT): He has a history of paroxysmal atrial fibrillation. He is 3 years post ablation and is not experience recurrent atrial arrhythmia. He remains on metoprolol. Immunizations Immunization Administration Dates Next Due Influenza, Quad, Adjuvantated, Intramuscular Influenza, Quadrivalent, Spl it, Preservative Free, Intramuscular 05/23/2018 Influenza, Trivalent, Adjuvanted, Intramuscular 05/31/2019 Influenza, Unspecified 05/09/2014,05/02/2012 Pneumococcal, Unspecified 05/02/2012 Social History Tobacco Use Types Packs/Day Years Used Date Smoking Tobacco: Never Smokeless Tobacco: Never Tobacco Cessation:Counseling Given: Not Answered Alcohol Use Standard Drinks/Week Comments No 0 (1 standard drink = 0.6 oz pur e alcohol) Sex and Gender Information Value Date Recorded Sex Assigned at Not on file 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 Gender Identity Not on file Sexual Orientation Not on file Last Filed Vital Signs Vital Sign Reading Time Taken Comments Blood Pressure 102/64 04/16/2024 3:51 PM CDT Pulse 95 04/16/2024 3:51 PM CDT Temperature 36.3 C (97.4 F) 04/22/2019 8:43 AM CDT Respiratory Rate 14 05/25/2017 10:11 AM CDT Oxygen Saturation 98% 04/16/2024 3:51 PM CDT Inhaled Oxygen Concentration - - Weight 98.5 kg (217 lb 1.6 oz) 04/16/2024 3:51 P M CDT Height 188 cm (6' 2 ) 04/16/2024 3:51 PM CDT Body Mass Index 27.87 04/16/2024 3:51 PM CDT Plan of Treatment Not on file Insurance MEDICARE FOR LIFE FOR LIFE MEDICARE Care Teams Machining Technician Relationship Specialty Start Date End Date Merlin Vitale MD [address] [place], [place] [id number] PCP - General 12/23/19 Merlin Vitale MD [address] [place], [place] [id number] Internal Medicine 12/23/19
--- OUTSIDE RECORDS SUMMARY | 2024-10-22 12:18 | XMS_ITS | Clinical Summary ---
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 Gender Identity Not on file Sexual Orientation Not on file Plan of Treatment Health Maintenance Due Date Last Done Comments Hepatitis C Virus (HCV) Screening 1950 TdaP Immunization 1950 Colonoscopy 1994 Colorectal Cancer Screening 1994 Cologuard 1999 Immunochemical Fecal Occult Blood 1999 Pneumococcal Immunization (5 0+ years) (1 of 1 - PCV) 1999 Zoster Immunization (1 of 2) 1999 Respiratory Syncytial Virus (RSV) Immunization (Adult) (1 - 1-dose 75+ series) 02/21/2024 Influenza Immunization (#1) 2024 SARS-COV-2 Immunization ( - 2023-25 season) 2024 Hepatitis B Immunization Aged Out No longer eligible based on patient's age to complete this topic Meningococcal Immunization (ACWY) Aged Out No longer eligible based on patient's age to complete this topic Rotavirus Immunization Aged Out No lo nger eligible based on patient's age to complete this topic
--- OUTSIDE RECORDS SUMMARY | 2024-10-22 12:18 | XMS_ITS | Clinical Summary ---
Author Organization [facility] Address [address] [place] [address] Care Team Providers Care Intervention Manager Name Role Phone Merlin Vitale MD Primary Care Provider Source Comments [facility],non-owned Affiliates and Associated Physician Practices is amultiple site organization consisting of ambulatory clinics and hospital sitesin [place], [place], [place] and [place]. This disclosure is being madepursuant to the Care Everywhere program and may not contain all information available regarding this patient. Last updated 18.[facility] Allergies No known active allergies Medications * Be aware that medications may not be up to date on this document. Alwaysverify current medications with the patient. Medication Sig Dispensed Refills Start Date End Date Status apixaban (Eliquis) 5 MG tablet Take 5 mg by mouth 2 times daily 03/04/2021 Active Ascorbic Acid 125 MG CHEW Take 1 tablet by mouth once daily Active Berberine-RedIsoAlphaA cd-D-K (OSTERA) TABS Take 1 tablet by mouth once daily Active metoprolol tartrate (LOPRESSOR) 50 MG tablet Take 25 mg by mouth 2 times daily 12/17/2020 Active simvastatin (ZOCOR) 20 MG tablet Take 20 mg by mouth once daily 04/29/2020 Active sildenafil (VIAGRA) 50 MG tablet Take 50 mg by mouth once daily as needed 09/06/2020 Active lisinopril (Prinivil; Zestril) 5 MG tablet Take 5 mg by mouth once daily 02/02/2022 Active Active Problems Problem Noted Date Diagnosed Date Primary hypertension 01/03/2022 Overview (04/13/2022): Last Assessment & Plan: Followed by his PCP and chronic stable. I recommend he continue his lisinopril and Lopressor. Mixed hyperlipidemia 12/23/2019 Overview (04/13/2022): Last Assessment & Plan: Patient is maintained on a statin at this time. Abdominal aortic aneurysm (AAA) without rupture 04/22/2019 Overview (04/13/2022): Last Assessment & Plan: Patient's aneurysm has not changed in size. Will have him follow up in 1 year with a repeat abdominal aortic duplex. Coronary artery disease invo lving [place] coronary artery of [place] heart without angina pectoris 05/25/2017 Hx of CABG 05/25/2017 Overview (04/13/2022): Last Assessment & Plan: Patient has a straight CABG but is not complaining of any chest pain or issues at this time. He is active with walking and riding his bike and denies any chest discomfort when doing these activities. Anticoagulation management encounter 01/04/2017 Overview (04/13/2022): Last Assessment & Plan: Currently on Eliquis for his AFib. He also takes an aspirin a day. Paroxysmal atrial fibrillation 07/18/2014 Overview (04/13/2022): PAF Last Assessment & Plan: Patient has paroxysmal AFib and is on Eliquis. Immunizations Name Administration Dates Next Due INFLUENZA VACCINE 05/09/2014,05/02/2012 INFLUENZA VACCINE, ADJUVANTE D, QUADR. (FLUAD QUADRIVALENT; 65Y+) (AIIV4) 05/08/2020 INFLUENZA VACCINE, ADJUVANTE D, TRIV. (FLUAD TRIVALENT; 65Y+) (AIIV3) 05/31/2019 INFLUENZA VACCINE, QUADR. (F LUZONE; FLULAVAL; FLUARIX; AFLURIA QUADRIVALENT; 6MO+), 0.5 ML (IIV4) 05/23/2018 PNEUMOCOCCAL PPV VACCINE 05/02/2012 Social History Tobacco Use Types Packs/Day Years Used Date Smoking Tobacco: Former Cigarettes Q uit: 07/24/1969 Smokeless Tobacco: Never Alcohol Use Standard Drinks/Week Comments Not Currently 0 (1 standard drink = 0.6 oz pur e alcohol) Sex and Gender Information Value Date Recorded Sex Assigned at Not on file Gender Identity Not on file Sexual Orientation Not on file Last Filed Vital Signs Vital Sign Reading Time Taken Comments Blood Pressure 143/74 07/15/2021 9:44 AM THERAPIST SPEECH Pulse 76 07/15/2021 9:44 AM THERAPIST SPEECH Temperature 36.7 C (98.1 F) 07/15/2021 9:44 AM THERAPIST SPEECH Respiratory Rate - - Oxygen Saturation 100% 07/15/2021 9:44 AM THERAPIST SPEECH Inhaled Oxygen Concentration - - Weight - - Height - - Body Mass Index - - Plan of Treatment Health Maintenance Due Date Last Done Comments COLOGUARD (AGES 45-75) - COLON CA SCREENING 1949 COLON MONITORING 1949 COLONOSCOPY - COLON CA SCREENING 1949 CT COLONOGRAPHY - COLON CA SCREENING 1950 Colorectal Cancer Screening 1949 FIT - COLON CA SCREENING 1949 FLEX SIG - COLON CA SCREENING 1950 MEDICARE AWV 12 MONTHS 1949 HEPATITIS C SCREENING 02/16/1967 DTAP/TDAP/TD VACCINES (1 - Tdap) 02/21/1968 ZOSTER VACCINE (1 of 2) 1999 PNEUMOCOCCAL VACCINE 50+ (2 of 2 - PCV) 05/02/2013 05/02/2012 Respiratory Syncytial Virus (RSV) Vaccine Pt: or over 60 yrs (1 - 1-dose 75+ series) 02/21/2024 COVID-19 VACCINE (1 - season) 2024 INFLUENZA VACCINE (#1) 2024 , 05/31/2019, 05/23/2018, Additional history exists DEPRESSION SCREENING 07/24/2024 HEPATITIS B VACCINE Aged Out No longe r eligible based on patient's age to complete this topic HIB VACCINE Aged Out No longer eligi ble based on patient's age to complete this topic HPV VACCINE Aged Out No longer eligi ble based on patient's age to complete this topic MENINGOCOCCAL (Group B) VACCINE SHARED DECISION-MAKING Aged Out No longer eligible based on patient's age to complete this topic MENINGOCOCCAL GROUPS A/C/Y/W VACCINE Aged Out No longer eligible based on patient's age to complete this topic Care Teams Intervention Manager Relationship Specialty Start Date End Date Merlin Vitale MD [address] [place] [address] PCP - General 06/15/21
--- OUTSIDE RECORDS SUMMARY | 2024-10-22 12:19 | XMS_ITS | Continuity of Care Document ---
Author Name [facility] Organization [facility] Care Team Providers Care Crib Tender Name Role Phone [facility] Unavailable Unavailable Problems Combined list of problems from Department of Defense and [facility] Affairs facilities. It does not include entries that were removed or entered in error. Problem Status Onset Date Problem Type Date of Resolution Comments Source History of pulmonary embolism on long-term anticoagulation therapy (SNOMED CT 57590937859010674) Active 0 Condition [facility] AF-Atrial Fibrillation ([facility] 26095315) Active Condition Jul 04, 2023 Entered By: SUMEET ELAM Comment: ablation 2012 [facility] Benign prostatic hyperplasia (SNOMED CT 508309440) Active Condition [facility] Coronary artery disease (SNOMED CT 89844168) Active Condition Feb 22, 2012 Entered By: MERARY LOPEZ Comment: sp 4 v cabg at [employer] 2009 [facility] Dyspnea * (ICD-9-CM 786.05) Active Condition [facility] Exposure to potentially hazardous substance Active Condition Sep 18, 2023 Entered By: CHEYENNE CAMARGO I Comment: Agent [place] [facility] Hypertension (SNOMED CT 77928938) Active Condition [facility] Non-neoplastic nevus Active Condition [facility] Panic attack (SNOMED CT 440863600) Active Condition [facility] Diagnosis: ICD-10-CM H53.2 Diplopia Active Diagnosis [facility] Diagnosis: ICD-10-CM I25.10 Athscl heart disease of [place] coronary artery w/o ang pctrs Active Diagnosis [facility] Diagnosis: ICD-10-CM 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 [facility] Diagnosis: ICD-10-CM Z77.29 Contact with and exposure to other hazardous substances Active Diagnosis [facility] Diagnosis: ICD-10-CM D03.8 Melanoma in situ of other sites Active Diagnosis [facility] Diagnosis: ICD-10-CM I48.91 Unspecified atrial fibrillation Active Diagnosis [facility] Diagnosis: ICD-10-CM Z79.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 Medication Details Route Status Patient Instructions Prescription Expires Prescription Number Last Dispense Date Ordering Provider Order Date Order Qty Source APIXABAN 5MG TAB TAKE ONE TABLET BY MOUTH TWICE A DAY ORAL ACTIVE Leda PASCAL 2013 [facility] ASPIRIN (IMMEDIATE RELEASE)(OT C) TAB TAKE 81MG BY MOUTH ONCE A DAY ORAL ACTIVE Leda PASCAL 2011 [facility] CHOLECALCIF MALCOLM 25MCG (1,000UNIT) TAB TAKE ONE TABLET BY MOUTH ONCE A DAY ORAL ACTIVE IAN GARVEY 2022 [facility] COENZYME Q10 CAP/TAB TAKE 1 CAP/TAB BY MOUTH ONCE A DAY ORAL ACTIVE IAN GARVEY 2022 [facility] CYANOCOBALA MIN 500MCG TAB TAKE ONE TABLET BY MOUTH ONCE A DAY ORAL ACTIVE IAN GARVEY 2022 [facility] FISH OIL 1000MG (500MG DHA/EPA) CAP,ORAL TAKE 1 CAPSULE BY MOUTH ONCE A DAY ORAL ACTIVE IAN GARVEY 2022 [facility] GLUCOSAMINE CAP/TAB TAKE 1 CAP/TAB BY MOUTH ORAL ACTIVE IAN GARVEY 2022 [facility] LISINOPRIL 10MG TAB TAKE ONE-HALF TABLET BY MOUTH ONCE A DAY ORAL ACTIVE IAN GARVEY 2022 [facility] METOPROLOL SUCCINATE 50MG TAB,SA TAKE ONE-HALF TABLET BY MOUTH TWICE A DAY ORAL ACTIVE IAN GARVEY 2022 [facility] SIMVASTATIN 40MG TAB TAKE ONE-HALF TABLET BY MOUTH EVERY EVENING ORAL ACTIVE DINA [facility]MAN [facility] Daniel 2017 [facility] ZINC GLUCONATE 50MG TAB TAKE ONE TABLET BY MOUTH ORAL ACTIVE IAN GARVEY 2022 [facility] Immunizations Combined list of available immunizations from the Department of Defense and Veterans Affairs facilities. Immunization Series Date Given Administered By Site Reaction Lot Number CVX Code Drug Corporate Legal Assistant Status Comments Source INFLUENZA VACCINE, QUADRIVALENT, ADJUVANTED 2019 205 [facility] ed [facility] Administe red by: [facility] Clinician (NPI=Not Provided) . Partner 63 Mfr: [employer] [facility] INFLUENZA, TRIVALENT, ADJUVANTED 2018 168 complet ed Partner: [facility]. Administe red by: [facility] Clinician (NPI=Not Provided) . Partner 63 Lot#: [id number] Mfr: [employer] [facility] INFLUENZA, INJECTABLE, QUADRIVALENT, PRESERVATIVE FREE 2017 150 complet ed Partner: [facility]. Administe red by: [facility] Clinician (NPI=Not Provided) . Partner 63 Lot#: [id number] Mfr: [employer] [facility] INFLUENZA, HIGH DOSE SEASONAL 2016 135 complet ed [facility] INFLUENZA, SEASONAL, INJECTABLE, PRESERVATIVE FREE 2015 140 complet ed [facility] INFLUENZA, SEASONAL, INJECTABLE, PRESERVATIVE FREE 2014 140 complet ed [facility] INFLUENZA, UNSPECIFIED FORMULATION [address] [facility] [place] [place] [facility] INFLUENZA, UNSPECIFIED FORMULATION 2012 88 complet ed [facility] ZOSTER LIVE 2012 121 complet ed [facility] PNEUMOCOCCAL, UNSPECIFIED FORMULATION 2012 109 complet ed [facility] TD(ADULT) UNSPECIFIED FORMULATION 2012 139 complet ed Left Deltoid [facility] INFLUENZA, UNSPECIFIED FORMULATION 2011 88 complet ed [facility] INFLUENZA, UNSPECIFIED FORMULATION 2010 88 complet ed [facility] INFLUENZA, UNSPECIFIED FORMULATION 2009 88 complet ed [facility] Results Combined list of recent chemistry, hematology and other laboratory results from Department of Defense and Veterans Affairs, ranging from 15 months to all on record, depending upon the facility. Order Name Results Value Reference Range Date Interpretation Specimen Comments Source OCCULT BLOOD FIT X1 SCREEN HEMOGLOBIN .GASTROINT ESTINAL.LO WER [PRESENCE] IN STOOL BY IMMUNOASSA Y Negative 07/11 Specimen Type: FECES No comment entered. Ordering Provider: SUMEET ELAM Report Released Date/Time: Jul 04, 2024 10:35 AM Reporting Lab: [facility] [address] [place] [phone] Performing Lab: [facility] [address] [place] [phone] [facility] URINALYSI S (STL-PB) COLOR OF URINE Light-Ye llow 07/04 Specimen Type: URINE No comment entered. Ordering Provider: SUMEET ELAM Report Released Date/Time: Jul 04, 2024 10:35 AM Reporting Lab: [facility] [phone] Performing Lab: [facility] [phone] [facility] URINALYSI S (STL-PB) BILIRUBIN. TOTAL [PRESENCE] IN URINE BY TEST STRIP Negative mg/dL 07/04 Specimen Type: URINE No comment entered. Ordering Provider: SUMEET ELAM Report Released Date/Time: Jul 04, 2024 10:35 AM Reporting Lab: [facility] [place] [address] Performing Lab: [facility] DIV[facility] URINALYSI S (STL-PB) PH OF URINE BY TEST STRIP 6.5 5.0 - 8.0 07/04 Specimen Type: URINE No comment entered. Ordering Provider: SUMEET ELAM Report Released Date/Time: Jul 04, 2024 10:35 AM Reporting Lab: [facility] [place] [address] Performing Lab: [facility] [facility] URINALYSI S (STL-PB) APPEARANCE OF URINE Clear 07/04 Specimen Type: URINE No comment entered. Ordering Provider: SUMEET ELAM Report Released Date/Time: Jul 04, 2024 10:35 AM Reporting Lab: [facility] [place] [address] Performing Lab: [facility] [facility] URINALYSI S (STL-PB) NITRITE [PRESENCE] IN URINE BY TEST STRIP Negative mg/dL 07/04 Specimen Type: URINE No comment entered. Ordering Provider: SUMEET ELAM Report Released Date/Time: Jul 04, 2024 10:35 AM Reporting Lab: [facility] [place] [address] Performing Lab: [facility] [facility] URINALYSI S (STL-PB) GLUCOSE [MASS/VOLU ME] IN URINE BY TEST STRIP Normalmg /dL 07/04 Specimen Type: URINE No comment entered. Ordering Provider: SUMEET ELAM Report Released Date/Time: Jul 04, 2024 10:35 AM Reporting Lab: [facility] [place] [address] Performing Lab: [facility] [facility] URINALYSI S (STL-PB) PROTEIN [MASS/VOLU ME] IN URINE BY TEST STRIP 10 mg/dL 07/04 H Specimen Type: URINE No comment entered. Ordering Provider: SUMEET ELAM Report Released Date/Time: Jul 04, 2024 10:35 AM Reporting Lab: [facility] [place] [address] Performing Lab: [facility] [facility] URINALYSI S (STL-PB) URN.UROBIL INOGEN Normalmg /dL 07/04 Specimen Type: URINE No comment entered. Ordering Provider: SUMEET ELAM Report Released Date/Time: Jul 04, 2024 10:35 AM Reporting Lab: [facility] [place] [address] Performing Lab: [facility] [facility] URINALYSI S (STL-PB) HEMOGLOBIN [MASS/VOLU ME] IN URINE BY TEST STRIP Negative mg/dL 07/04 Specimen Type: URINE No comment entered. Ordering Provider: SUMEET ELAM Report Released Date/Time: Jul 04, 2024 10:35 AM Reporting Lab: [facility] [place] [address] Performing Lab: [facility] [facility] URINALYSI S (STL-PB) KETONES [MASS/VOLU ME] IN URINE BY TEST STRIP Negative mg/dL 07/04 Specimen Type: URINE No comment entered. Ordering Provider: SUMEET ELAM Report Released Date/Time: Jul 04, 2024 10:35 AM Reporting Lab: [facility] [place] [address] Performing Lab: [facility] [facility] URINALYSI S (STL-PB) URN.LEUK.E ST. Negative mg/dL 07/04 Specimen Type: URINE No comment entered. Ordering Provider: SUMEET ELAM Report Released Date/Time: Jul 04, 2024 10:35 AM Reporting Lab: [facility] [place] [address] Performing Lab: [facility] URINALYSI S (STL-PB) SPECIFIC GRAVITY OF URINE 1.020 07/04 Specimen Type: URINE No comment entered. Ordering Provider: SUMEET ELAM Report Released Date/Time: Jul 04, 2024 10:35 AM Reporting Lab: [facility]1 [place] [address] Performing Lab: [facility] [address] DIVISION CBC LEUKOCYTES [#/VOLUME] IN BLOOD BY AUTOMATED COUNT 7.3 10*3/uL 3.6 - 11.2 07/04 Specimen Type: BLOOD No comment entered. Ordering Provider: SUMEET ELAM Report Released Date/Time: Jul 04, 2024 10:35 AM Reporting Lab: [facility] [place] [address] Performing Lab: [facility] DIVISION CBC ERYTHROCYT ES [#/VOLUME] IN BLOOD BY AUTOMATED COUNT 4.23 10*6/uL 4.10 - 5.70 07/04 Specimen Type: BLOOD No comment entered. Ordering Provider: SUMEET ELAM Report Released Date/Time: Jul 04, 2024 10:35 AM Reporting Lab: [facility]1 [place] [address] Performing Lab: [facility] CBC HEMOGLOBIN [MASS/VOLU ME] IN BLOOD 12.9 g/dL 13.1 - 16.8 07/04 L Specimen Type: BLOOD No comment entered. Ordering Provider: SUMEET ELAM Report Released Date/Time: Jul 04, 2024 10:35 AM Reporting Lab: [facility]1 [place] [address] Performing Lab: [facility] CBC HEMATOCRIT [VOLUME FRACTION] OF BLOOD 39.3 38.2 - 48.4 07/04 Specimen Type: BLOOD No comment entered. Ordering Provider: SUMEET ELAM Report Released Date/Time: Jul 04, 2024 10:35 AM Reporting Lab: [facility]1 [place] [address] Performing Lab: [facility] CBC MCV [ENTITIC VOLUME] BY AUTOMATED COUNT 92.9 fL 80.0 - 100.0 07/04 Specimen Type: BLOOD No comment entered. Ordering Provider: SUMEET ELAM Report Released Date/Time: Jul 04, 2024 10:35 AM Reporting Lab: [facility]1 [place] [address] Performing Lab: [facility] [facility] CBC MCH [ENTITIC MASS] BY AUTOMATED COUNT 30.5 pg 27.0 - 34.0 07/04 Specimen Type: BLOOD No comment entered. Ordering Provider: SUMEET ELAM Report Released Date/Time: Jul 04, 2024 10:35 AM Reporting Lab: [facility]1 [place] [address] Performing Lab: [facility] DIVISION CBC MCHC [MASS/VOLU ME] BY AUTOMATED COUNT 32.8 g/dL 33.0 - 36.0 07/04 L Specimen Type: BLOOD No comment entered. Ordering Provider: SUMEET ELAM Report Released Date/Time: Jul 04, 2024 10:35 AM Reporting Lab: [facility]1 [place] [address] Performing Lab: [facility] DIVISION CBC PLATELETS [#/VOLUME] IN BLOOD BY AUTOMATED COUNT 262 10*3/uL 150 - 400 07/04 Specimen Type: BLOOD No comment entered. Ordering Provider: SUMEET ELAM Report Released Date/Time: Jul 04, 2024 10:35 AM Reporting Lab: [facility] [place] [address] Performing Lab: [facility] DIVISION CBC PLATELET MEAN VOLUME [ENTITIC VOLUME] IN BLOOD BY AUTOMATED COUNT 9.4 fL 7.5 - 11.2 07/04 Specimen Type: BLOOD No comment entered. Ordering Provider: SUMEET ELAM Report Released Date/Time: Jul 04, 2024 10:35 AM Reporting Lab: [facility]1 [place] [address] Performing Lab: [facility] [place] [facility] CBC ERYTHROCYT E DISTRIBUTI ON WIDTH [RATIO] BY AUTOMATED COUNT 13.2 11.8 - 15.1 07/04 Specimen Type: BLOOD No comment entered. Ordering Provider: SUMEET ELAM Report Released Date/Time: Jul 04, 2024 10:35 AM Reporting Lab: [facility] [place] [address] Performing Lab: [facility] DIVISION CBC LYMPHOCYTE S/100 LEUKOCYTES IN BLOOD BY AUTOMATED COUNT 19 07/04 Specimen Type: BLOOD No comment entered. Ordering Provider: SUMEET ELAM Report Released Date/Time: Jul 04, 2024 10:35 AM Reporting Lab: [facility]1 [place] [address] Performing Lab: [facility] DIVISION CBC MONOCYTES/ 100 LEUKOCYTES IN BLOOD BY AUTOMATED COUNT 11 07/04 Specimen Type: BLOOD No comment entered. Ordering Provider: SUMEET ELAM Report Released Date/Time: Jul 04, 2024 10:35 AM Reporting Lab: [facility]1 [place] [address] Performing Lab: [facility] #[address] DIVISION CBC NEUTROPHIL S/100 LEUKOCYTES IN BLOOD BY AUTOMATED COUNT 67 07/04 Specimen Type: BLOOD No comment entered. Ordering Provider: SUMEET ELAM Report Released Date/Time: Jul 04, 2024 10:35 AM Reporting Lab: [facility]1 [place] [address] Performing Lab: [facility]1 [facility] [id number] [place] [address] DIVISION CBC EOSINOPHIL S/100 LEUKOCYTES IN BLOOD BY AUTOMATED COUNT 2 07/04 Specimen Type: BLOOD No comment entered. Ordering Provider: SUMEET ELAM Report Released Date/Time: Jul 04, 2024 10:35 AM Reporting Lab: [facility]1 [place] [address] Performing Lab: [facility] #[address] DIVISION CBC BASOPHILS/ 100 LEUKOCYTES IN BLOOD BY AUTOMATED COUNT 1 07/04 Specimen Type: BLOOD No comment entered. Ordering Provider: SUMEET ELAM Report Released Date/Time: Jul 04, 2024 10:35 AM Reporting Lab: [facility]1 [place] [address] Performing Lab: [facility] DIVISION CBC LYMPHOCYTE S [#/VOLUME] IN BLOOD BY AUTOMATED COUNT 1.36 10*3/uL 0.77 - 4.50 07/04 Specimen Type: BLOOD No comment entered. Ordering Provider: SUMEET ELAM Report Released Date/Time: Jul 04, 2024 10:35 AM Reporting Lab: [facility]1 [place] [address] Performing Lab: [facility] #[address] DIVISION CBC MONOCYTES [#/VOLUME] IN BLOOD BY AUTOMATED COUNT 0.82 10*3/uL 0.19 - 0.80 07/04 H Specimen Type: BLOOD No comment entered. Ordering Provider: SUMEET ELAM Report Released Date/Time: Jul 04, 2024 10:35 AM Reporting Lab: [facility]1 [place] [address] Performing Lab: [facility] DIVISION CBC NEUTROPHIL S [#/VOLUME] IN BLOOD BY AUTOMATED COUNT 4.93 10*3/uL 2.10 - 8.00 07/04 Specimen Type: BLOOD No comment entered. Ordering Provider: SUMEET ELAM Report Released Date/Time: Jul 04, 2024 10:35 AM Reporting Lab: [facility] [place] [address] Performing Lab: [facility] DIVISION CBC EOSINOPHIL S [#/VOLUME] IN BLOOD BY AUTOMATED COUNT 0.13 10*3/uL 0.00 - 0.60 07/04 Specimen Type: BLOOD No comment entered. Ordering Provider: SUMEET ELAM Report Released Date/Time: Jul 04, 2024 10:35 AM Reporting Lab: [facility] [place] [address] Performing Lab: [facility] DIVISION CBC BASOPHILS [#/VOLUME] IN BLOOD BY AUTOMATED COUNT 0.05 10*3/uL 0.00 - 0.20 07/04 Specimen Type: BLOOD No comment entered. Ordering Provider: SUMEET ELAM Report Released Date/Time: Jul 04, 2024 10:35 AM Reporting Lab: [facility] [place] [address] Performing Lab: [facility] DIVISION COMPREHEN SIVE METABOLIC PANEL CREATININE [MASS/VOLU ME] IN SERUM OR PLASMA 1.24 mg/dL 0.70 - 1.30 07/04 Specimen Type: PLASMA Comment: No hemolysis noted. Ordering Provider: SUMEET ELAM Report Released Date/Time: Jul 04, 2024 10:35 AM Reporting Lab: [facility] [place] [address] Performing Lab: [facility] [facility] COMPREHEN SIVE METABOLIC PANEL UREA NITROGEN [MASS/VOLU ME] IN SERUM OR PLASMA 12.5 mg/dL 9.0 - 25.0 07/04 Specimen Type: PLASMA Comment: No hemolysis noted. Ordering Provider: SUMEET ELAM Report Released Date/Time: Jul 04, 2024 10:35 AM Reporting Lab: [facility] [place] [address] Performing Lab: [facility] DIVISION COMPREHEN SIVE METABOLIC PANEL GLUCOSE [MASS/VOLU ME] IN SERUM OR PLASMA 108 mg/dL 72 - 99 07/04 H Specimen Type: PLASMA Comment: No hemolysis noted. Ordering Provider: SUMEET ELAM Report Released Date/Time: Jul 04, 2024 10:35 AM Reporting Lab: [facility] [place] [address] Performing Lab: [facility] DIVISION COMPREHEN SIVE METABOLIC PANEL SODIUM [MOLES/VOL UME] IN SERUM OR PLASMA 137 meq/L 136 - 145 07/04 Specimen Type: PLASMA Comment: No hemolysis noted. Ordering Provider: SUMEET ELAM Report Released Date/Time: Jul 04, 2024 10:35 AM Reporting Lab: [facility] [place] [address] Performing Lab: [facility] DIVISION COMPREHEN SIVE METABOLIC PANEL POTASSIUM [MOLES/VOL UME] IN SERUM OR PLASMA 4.4 meq/L 3.5 - 5.0 07/04 Specimen Type: PLASMA Comment: No hemolysis noted. Ordering Provider: SUMEET ELAM Report Released Date/Time: Jul 04, 2024 10:35 AM Reporting Lab: [facility]1 [place] [id number] Performing Lab: [facility] [id number] DIVISION COMPREHEN SIVE METABOLIC PANEL CHLORIDE [MOLES/VOL UME] IN SERUM OR PLASMA 107 meq/L 98 - 107 07/04 Specimen Type: PLASMA Comment: No hemolysis noted. Ordering Provider: SUMEET ELAM Report Released Date/Time: Jul 04, 2024 10:35 AM Reporting Lab: [facility] [place] [address] Performing Lab: [facility] DIVISION COMPREHEN SIVE METABOLIC PANEL CARBON DIOXIDE, TOTAL [MOLES/VOL UME] IN SERUM OR PLASMA 25 meq/L 22 - 31 07/04 Specimen Type: PLASMA Comment: No hemolysis noted. Ordering Provider: SUMEET ELAM Report Released Date/Time: Jul 04, 2024 10:35 AM Reporting Lab: [facility] [place] [address] Performing Lab: [facility] DIVISION COMPREHEN SIVE METABOLIC PANEL CALCIUM [MASS/VOLU ME] IN SERUM OR PLASMA 9.0 mg/dL 8.4 - 10.4 07/04 Specimen Type: PLASMA Comment: No hemolysis noted. Ordering Provider: SUMEET ELAM Report Released Date/Time: Jul 04, 2024 10:35 AM Reporting Lab: [facility] [place] [address] Performing Lab: [facility] DIVISION COMPREHEN SIVE METABOLIC PANEL PROTEIN [MASS/VOLU ME] IN SERUM OR PLASMA 7.0 g/dL 6.0 - 8.6 07/04 Specimen Type: PLASMA Comment: No hemolysis noted. Ordering Provider: SUMEET ELAM Report Released Date/Time: Jul 04, 2024 10:35 AM Reporting Lab: [facility] [place] [address] Performing Lab: [facility] DIVISION COMPREHEN SIVE METABOLIC PANEL ALBUMIN [MASS/VOLU ME] IN SERUM OR PLASMA 3.7 g/dL 3.4 - 5.0 07/04 Specimen Type: PLASMA Comment: No hemolysis noted. Ordering Provider: SUMEET ELAM Report Released Date/Time: Jul 04, 2024 10:35 AM Reporting Lab: [facility] [place] [address] Performing Lab: [facility] COMPREHEN SIVE METABOLIC PANEL BILIRUBIN. TOTAL [MASS/VOLU ME] IN SERUM OR PLASMA 0.4 mg/dL 0.2 - 1.2 07/04 Specimen Type: PLASMA Comment: No hemolysis noted. Ordering Provider: SUMEET ELAM Report Released Date/Time: Jul 04, 2024 10:35 AM Reporting Lab: [facility] [place] [address] Performing Lab: [facility] DIVISION COMPREHEN SIVE METABOLIC PANEL ALKALINE PHOSPHATAS E [ENZYMATIC ACTIVITY/V OLUME] IN SERUM OR PLASMA 89 U/L 40 - 150 07/04 Specimen Type: PLASMA Comment: No hemolysis noted. Ordering Provider: SUMEET ELAM Report Released Date/Time: Jul 04, 2024 10:35 AM Reporting Lab: [facility] [place] [address] Performing Lab: [facility] DIVISION COMPREHEN SIVE METABOLIC PANEL ASPARTATE AMINOTRANS FERASE [ENZYMATIC ACTIVITY/V OLUME] IN SERUM OR PLASMA 19 U/L 5 - 34 07/04 Specimen Type: PLASMA Comment: No hemolysis noted. Ordering Provider: SUMEET ELAM Report Released Date/Time: Jul 04, 2024 10:35 AM Reporting Lab: [facility] [phone] Performing Lab: [facility]1 [place] [id number] DIVISION COMPREHEN SIVE METABOLIC PANEL ALANINE AMINOTRANS FERASE [ENZYMATIC ACTIVITY/V OLUME] IN SERUM OR PLASMA 17 U/L 8 - 40 07/04 Specimen Type: PLASMA Comment: No hemolysis noted. Ordering Provider: SUMEET ELAM Report Released Date/Time: Jul 04, 2024 10:35 AM Reporting Lab: [facility] [address] Performing Lab: [facility] [place] [id number] DIVISION COMPREHEN SIVE METABOLIC PANEL GLOMERULAR FILTRATION RATE/1.73 SQ M.PREDICTE D [VOLUME RATE/AREA] IN SERUM, PLASMA OR BLOOD BY CREATININE -BASED FORMULA (CKD-EPI 2020) 60.63 60 07/04 Specimen Type: PLASMA Comment: No hemolysis noted. Ordering Provider: SUMEET ELAM Report Released Date/Time: Jul 04, 2024 10:35 AM Reporting Lab: [facility] [place] [phone] Performing Lab: [facility] [id number] [facility] HEP C Ab HCV Ab (STL) HEPATITIS C VIRUS AB [PRESENCE] IN SERUM Nonreact ming 07/04 Specimen Type: SERUM No comment entered. Ordering Provider: SUMEET ELAM Report Released Date/Time: Jul 04, 2024 10:35 AM Reporting Lab: [facility] [address] [facility] [phone] Performing Lab: [facility] [address] [facility] [address] [facility] HGA1C HEMOGLOBIN A1C/HEMOGL OBIN.TOTAL IN BLOOD 6.1 4.0 - 6.0 07/04 H Specimen Type: BLOOD No comment entered. Ordering Provider: SUMEET ELAM Report Released Date/Time: Jul 04, 2024 10:35 AM Reporting Lab: [facility] [place] [id number] Performing Lab: [facility] [facility]ISION LIPID PANEL (STL) CHOLESTERO L [MASS/VOLU ME] IN SERUM OR PLASMA 209 mg/dL 0 - 200 07/04 H Specimen Type: PLASMA Comment: No hemolysis noted. Ordering Provider: SUMEET ELAM Report Released Date/Time: Jul 04, 2024 10:35 AM Reporting Lab: [facility] [place] [phone] Performing Lab: [facility] [place] [phone] [place] [address] LIPID PANEL (STL) TRIGLYCERI DE [MASS/VOLU ME] IN SERUM OR PLASMA 148 mg/dL 0 - 150 07/04 Specimen Type: PLASMA Comment: No hemolysis noted. Ordering Provider: SUMEET ELAM Report Released Date/Time: Jul 04, 2024 10:35 AM Reporting Lab: [facility] [place] [address] Performing Lab: [facility] [place] [phone] [place] [address] LIPID PANEL (STL) CHOLESTERO L IN LDL [MASS/VOLU ME] IN SERUM OR PLASMA BY CALCCHRISTIAN N 146 mg/dL 07/04 Specimen Type: PLASMA Comment: No hemolysis noted. Ordering Provider: SUMEET ELAM Report Released Date/Time: Jul 04, 2024 10:35 AM Reporting Lab: [facility] [phone] Performing Lab: [facility] [phone] [facility] LIPID PANEL (STL) CHOLESTERO L IN HDL [MASS/VOLU ME] IN SERUM OR PLASMA 33 mg/dL 40 07/04 L Specimen Type: PLASMA Comment: No hemolysis noted. Ordering Provider: SUMEET ELAM Report Released Date/Time: Jul 04, 2024 10:35 AM Reporting Lab: [facility] [phone] Performing Lab: [facility] [address] [facility] Vital Signs Combined list of inpatient and outpatient Vital Signs from Department of [facility] and Veterans Affairs, ranging from 12 months to all on record, depending upon the facility. Vital Sign Value Date Comments Source SYSTOLIC BLOOD PRESSURE 148 07/04/2024 09:55:15 [facility] DIASTOLIC BLOOD PRESSURE 72 07/04/2024 09:55:15 [facility] PULSE OXIMETRY 99 07/04/2024 09:55:15 [facility] WEIGHT 219 07/04/2024 09:55:15 [facility] BMI 28 kg/m2 07/04/2024 09:55:15 [facility] PAIN 0 07/04/2024 09:55:15 [facility] TEMPERATURE 97.5 07/04/2024 09:55:15 [facility] PULSE 81 07/04/2024 09:55:15 [facility] RESPIRATION 16 07/04/2024 09:55:15 [facility] Encounters Combined list of: 1) Encounters from Department of Veterans Affairs facilities going backup to the last 18 months, not all VA inpatient encounters are included; 2) Encounters from the Department of [facility] facilities going backup to 280 months. 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 OFFICE O/P EST MOD 30 MIN [id number] Diagnos is: ICD-10- CM H50.15 Alterna ting exotrop Angeline Perez VICKI 10/15 [facility] Outpatient Encounter [id number] 07/04 [facility] Outpatient Encounter [id number] 07/04 [facility] OFFICE O/P EST HI 40 MIN [id number] Diagnos is: ICD-10- CM I25.10 Athscl heart disease of [place] coronar y artery w/o ang pctSUMEET Ulloa 07/04 [facility] N [facility] COMPRE OPH EXAM EST PT 1/> [id number] Diagnos is: ICD-10- CM H53.2 Diplopi DALE Sigala 10/16 [facility] Social History Combined list of available smoking, tobacco, and 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 Social History Type Response Date Comment Sourc e Tobacco smoking status NHIS MA-TOBACCO NEVER USED CIGARETTES 07/04/2024 [facility] History of tobacco use VA-TOBACCO NEVER USED OTHER TYPE 07/04/2024 [facility] History of tobacco use VA-TOBACCO FORMER USER 07/03/2023 [facility] History of tobacco use VA-TOBACCO FORMER USER 04/18/2018 [facility] History of tobacco use QUIT TOBACCO >7 YEARS AGO 05/15/2017 [facility] History of tobacco use LIFETIME NON-USER OF TOBACCO 02/05/2015 [facility] History of tobacco use LIFETIME NON-USER OF TOBACCO 02/07/2013 [facility] History of tobacco use LIFETIME NON-USER OF TOBACCO 10/26/2011 [facility]
--- OUTSIDE RECORDS SUMMARY | 2024-10-22 12:19 | XMS_ITS | Clinical Summary ---
Author Organization [facility] C Address [address] [facility] [place] [address] Care Team Providers Care Spa Manager Name Role Phone Merlin Vitale MD Primary Care Provider [phone] Merlin Vitale MD Unavailable Allergies No known active allergies Medications multivitamin [...] 90 tablet 3 09/27/2019 Active vit D3-vit N-imixpylot-mtq s [id number] rxdi-nhp-at-mg tablet Take by mouth Active ascorbic acid, vitamin C, 125 mg tablet,chewable Take by mouth Active lisinopriL (PRINIVIL,ZESTR IL) 5 mg tabletIndicatio ns:Coronary artery disease involving [place] coronary artery of [place] heart without angina pectoris TAKE 1 TABLET [...] all answered. Coronary artery disease invo lving [place] coronary artery of [place] heart without angina pectoris 05/25/2017 Hx of [...] recurrent atrial arrhythmia. He remains on metoprolol. Encounters Date Type Department Care Team Description 08/12/2024 Telephone [facility] [address] [place] [address] Anthony Archibald MD Med Refill from Last 3 Months Immunizations Immunization Administration Dates Next Due Influenza, Quad, Adjuvantated, Intramuscular Influenza, Quadrivalent, Spl it, Preservative Free, Intramuscular 05/23/2018 Influenza, Trivalent, Adjuvanted, Intramuscular 05/31/2019 Influenza, Unspecified 05/09/2014,05/02/2012 Pneumococcal, Unspecified 05/02/2012 Surgical History Surgery Date Site/Laterality Comments OTHER SURGICAL HISTORY R. femur fx - skin grafts CORONARY ARTERY BYPASS GRAFT Coronary Artery Bypass Graft Medical History Medical History Date Comments Hypertension Hypertension Hx Other Medical Pelvic fx - acc ident Hx Other Medical Spinal OR Hx Other Medical Chr. back & nec k pain Hx Other Medical pelvic fracture Hx Other Medical right femur fra cture Cardiovascular disease Coronary Artery Disease Atrial fibrillation (HCC) BPH associated with nocturia Family History Medical History Relation Name Comments Cancer Father cancer; Cause o f : cancer Cancer Mother Cancer; Cause o f : Cancer/cancer; Relation Name Status Comments Father Mother Alive Social History Tobacco Use Types Packs/Day Years Used Date Smoking Tobacco: Never Smokeless Tobacco: Never Tobacco Cessation:Counseling Given: Not Answered Alcohol Use Standard Drinks/Week Comments No 0 (1 standard drink = 0.6 oz pur e alcohol) Sex and Gender Information Value Date Recorded Sex Assigned at Not on file 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 Gender Identity Not on file Sexual Orientation Not on file Obstetrics History Last Filed Vital Signs Vital Sign Reading [...] 04/16/2024 3:51 PM CDT Plan of Treatment Health Maintenance Due Date Last Done Comments Colon Cancer Screening-Colonoscopy 1950 Depression Screening 1950 Fall Risk Assessment 1950 Hepatitis C Screening 1950 DTaP/Tdap/Td Vaccine (1 - Tdap) 02/21/1960 Hepatitis B Screening 1967 Pneumococcal vaccine 65+ (1 of 1 - PCV) 1999 05/02/2012 Zoster Vaccine (1 of 2) 1999 Well Visit 65+ 2014 Influenza Vaccine (#1) 2024 0, 05/31/2019, 05/23/2018, Additional history exists Insurance MEDICARE FOR LIFE FOR LIFE MEDICARE Care Teams Spa Manager Relationship Specialty Start Date End Date Merlin Vitale MD [address] [place] [address] PCP - General 12/23/19 Merlin Vitale MD [address] [place] [address] (work) Internal Medicine 12/23/19
== END 2024-10-22 11:00 | disposition home or self-care (01) ==
PROVIDERS: PCP Nurse Practitioner Family; Visit Provider Nurse Practitioner Family
DX: E78.2 Mixed hyperlipidemia (principal); D64.9 Anemia, unspecified; I48.91 Unspecified atrial fibrillation; R42 Dizziness and giddiness; I10 Essential (primary) hypertension; E55.9 Vitamin D deficiency, unspecified; R73.01 Impaired fasting glucose; N40.0 Benign prostatic hyperplasia without lower urinary tract symptoms; Z12.5 Encounter for screening for malignant neoplasm of prostate
CPT/HCPCS: 36415; 80053; 80061; 83036; 84153; 84439; 84443; 85025; G0103